=== PATIENT | female | born 1985 | race Caucasian/White ===

== ENCOUNTER 2024-02-11 09:22 | Outpatient (CLI) | payer BC, SELFPAY ==
[2024-03-02 12:01] VITALS: BMI 38.2
--- NOTE | 2024-03-02 12:01 | WPDHOMESLEEP ---
Sleep Study - Home Unattended Date of Study: 02/11/24 Ordering Provider: LEONARD Ruiz Interpreting Provider: Malini Mcintyre, DO Home Sleep Study Type: Watch PAT Height: 1.65 m Weight: 104.326 kg Body Mass Index: 38.2 Neck Circumference (inches): 15.75 [place]: 7 Reason for Sleep Study Difficulty falling and staying asleep Sleep History The patient is a 38-year-old female that had a sleep study ordered by the Pulmonary group for evaluation of sleep apnea. The patient admits to snoring loudly. She denies stopping breathing while asleep. She admits to choking or gasping while asleep. She denies having trouble breathing on her back. She denies morning headaches. 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 She denies nocturnal heartburn. She denies nocturia. She admits to having difficulty falling asleep and staying asleep. If she wakes up during the night, she has difficulty returning to sleep. She denies any hypnotic or sedative use. She admits to feeling anxious about sleep. She admits to feeling tired or sleepy during the day. She feels unrefreshed in the morning. She has the urge to fall asleep during the day. She feels drowsy while driving. She denies sleep paralysis, cataplexy and hypnagogic / hypnopompic hallucinations. She admits to clenching or grinding her teeth. She denies kicking or jerking her legs excessively. She denies having a restless feeling in her legs. She goes to bed at 9:30 p.m. on weekdays and at 10:30 p.m. on the weekends. It takes her 1 hour to fall asleep. She gets 6 hours of sleep per night. Her sleep is somewhat restorative on her days off. She denies taking any plan naps. She denies dream enactment behavior. She denies sleep walking. She consumes 1-2 cups of caffeinated beverage per day. She consumes 1 glass of an alcoholic beverage 1-2 nights per week. She exercises 1-2 nights per week. She denies tobacco use. [facility] Past Medical History Medical History ADHD Anxiety Social History Social History Smoking status: Never smoker Medications Home Medications Medication Instructions Recorded Confirmed Type escitalopram oxalate 20 mg tablet 20 mg PO DAILY 10/30/23 10/30/23 History eszopiclone 2 mg tablet (Lunesta) 2 mg PO ONCE #1 tablet 10/30/23 10/30/23 Rx lisdexamfetamine 50 mg capsule 50 mg PO DAILY 10/30/23 10/30/23 History Sleep Procedure The sleep study was completed using [employer] a technically adequate device with seven channels: peripheral arterial tone, actigraphy, body position, snore, respiratory movement, pulse oximetry, sleep staging, and heart rate. Prior to using the device, the patient received verbal and written instructions for its application and was provided with the help desk phone number for additional telephonic instruction with 24-hour availability of qualified personnel to answer questions. The study was scored using CMS guidelines. Sleep Architecture The total recording time is 7 hrs, 29 min. The total sleep time is 6 hrs, 22 min. Sleep latency is 17 minutes. REM latency is 117 minutes. The patient had 11 episodes of waking. Sleep architecture shows 24.6% deep sleep, 53.7% light sleep, and (as % Total Sleep Time) showed NREM (Light 53.7%; Deep 24.6%), and a 21.7% stage REM. The patient spent 70.1% of total sleep time in the supine position. Sleep efficiency was 85.08. Respiratory Analysis The overall AHI (pAHI 3%:) is 7.6. The central AHI is 0.5. The AHI was 5.8 in NREM and 13.8 in REM sleep. The AHI was 10.6 in Supine and 0.5 in Non-supine sleep. Percent of Jimmy Garcia respirations is 0.0. Oximetry Data The oxygen desaturation index (DELLA 4%:) is 4.1. The mean saturation is 95%, and the lowest saturation is 89%. Time spent with saturation < 88% is 0.0 minutes. Snoring Profile Snoring average intensity is 41 dB. The patient snored above 45 decibels for 10.0 minutes, 2.6% of sleep time. Cardiac Profile The average pulse rate is 59 beats per minutes. The lowest pulse rate is 40 bpm. The highest pulse rate reported is 96 bpm. Atrial fibrillation was not detected. Premature beats occur <0.1 per minute. Assessment and Plan Assessment and Plan (1) MENG (obstructive sleep apnea): Code(s): G47.33 - Obstructive sleep apnea (adult) (pediatric) Status: Acute Assessment and Plan: The patient had an overall AHI of 7.6 with desaturation down to 89%. This is consistent with mild sleep apnea. Due to the patient's anxiety, she qualifies for treatment. I recommend that the patient be prescribed Resmed AutoPAP 5-15 cm H2O, CPAP mask/filters/tubing and heated humidity. This should be used with all episodes of sleep.? Compliance should be reviewed within 31-90 days of starting therapy for usage greater than 4 hours per night greater than 70% of the nights. The patient should be asked about symptoms such as?excessive daytime sleepiness, quality of sleep, decreased nocturia, increased?mental functioning such as memory, mood, and concentration. Data The data obtained during this sleep study is adequate for interpretation. Certification This sleep study has been reviewed by a board certified sleep medicine physician.
== END 2024-02-12 11:43 | disposition home or self-care (01) ==
LOC: ANHCSM 09:25
PROVIDERS: Visit Provider Physician Assistant
DX: G47.10 Hypersomnia, unspecified (principal); G47.33 Obstructive sleep apnea (adult) (pediatric)
CPT/HCPCS: 95800